=== PATIENT | female | born 1950 | race Hispanic/Latino ===

== ENCOUNTER 2019-09-17 12:42 | Outpatient (CLI) | payer MEDICARE, MEDICAID ==
--- NOTE | 2019-09-17 14:32 | MRI ---
EXAM: Left knee MRI without contrast: HISTORY: Left knee internal derangement COMPARISON: None FINDINGS: Multiplanar, multisequence MRI examination of the knees performed. No evidence for significant joint effusion. Minimal generalized tricompartment cartilage loss. Medial meniscus: Minimal intrasubstance degenerative signal involving the body of the medial meniscus without evidence for an acute tear extending to the peripheral free edge. Lateral meniscus: Unremarkable. Anterior cruciate ligament:Intact. Posterior cruciate ligament: Intact. Medial collateral ligament complex: Intact. Lateral collateral ligament complex: Intact. Quadriceps and patellar tendons: Intact. Extensor mechanism: Unremarkable. No evidence for acute osteochondral defect or abnormal marrow edema signal. IMPRESSION: Minimal intrasubstance degenerative signal in the body of the medial meniscus without evidence for ac jena tear. Mild tricompartment cartilage loss. No evidence for other significant acute internal derangement.
== END 2019-09-17 12:43 | disposition home or self-care (01) ==
LOC: BICMRI 12:42
PROVIDERS: ATTEND Orthopaedic Surgery
DX: M23.92 Unspecified internal derangement of left knee (principal); M17.12 Unilateral primary osteoarthritis, left knee; M94.8X6 Other specified disorders of cartilage, lower leg

== ENCOUNTER 2019-10-11 07:26 | Outpatient (CLI) | payer MEDICARE, MEDICAID, OTHER ==
--- NOTE | 2019-10-11 11:27 | RAD ---
CHEST 2 VIEWS: Date: 10/11/2019 HISTORY: Preoperative evaluation. COMPARISON: 08/27/2016. FINDINGS: Heart size is normal. The lungs are clear. No confluent pneumonia, overt edema, or pleural effusion. IMPRESSION: No significant acute intrathoracic disease. Stable from prior study. Atherosclerosis of aorta. POS: OFF
[2019-10-11 14:04] LABS: #Eosinphils 0.1 thou/uL (0.0-0.7); #Lymphocytes 2.4 thou/uL (1.20-3.40); #Monocytes 0.4 thou/uL (0.11-0.59); #Neutrophils 3.7 thou/uL (1.40-6.50); %Basophils 0.2 % (0.0-1.0); %Eosinophils 0.9 % (0.0-10.0); %Lymphocytes 36.2 % (21.0-51.0); %Monocytes 5.4 % (0.0-10.0); %Neutrophils 57.3 % (42.0-75.0); Hemoglobin 14.5 g/dL (12.0-16.0); Mean Corpuscular HGB CONC 33.7 g/dL (32.0-36.0); Mean Corpuscular Hemoglobin 34.3 pg (27.0-31.0); Platelet Count 163 thou/uL (130-400); RBC Distribution Width 12.2 % (11.5-14.5); Red Blood Cell (RBC) Count 4.24 mill/uL (4.20-5.40); White Blood Cell (WBC) Count 6.5 thou/uL (4.8-10.8)
[2019-10-11 14:07] LABS: Anion Gap 15 mmol/L (10-20); BUN (Urea Nitrogen) 8 mg/dL (9.8-20.1); Calc. Creatinine Clearance 0 mL/min (70-130); Calcium 8.8 mg/dL (7.8-10.44); Carbon Dioxide 23 mmol/L (23-31); Chloride 104 mmol/L (98-107); Estimated GFR-MDRD 82; Glucose 172 mg/dL (80-115); Potassium 3.8 mmol/L (3.5-5.1); Sodium 138 mmol/L (136-145)
[2019-10-12 14:15] LABS: SARS-CoV-2 MS2 Positive; SARS-CoV-2 N Gene Negative; SARS-CoV-2 S Gene Negative; SARS-CoV-2 by NAA Not Detected (NotDetected); SARS-CoV-2 orf1ab Negative
--- NOTE | 2019-10-12 15:37 | EKG ---
Test Reason : Blood Pressure : / mmHG Vent. Rate : 086 BPM Atrial Rate : 086 BPM P-R Int : 140 ms QRS Dur : 082 ms QT Int : 368 ms P-R-T Axes : 018 049 069 degrees QTc Int : 440 ms Normal sinus rhythm Low voltage QRS Borderline ECG Confirmed by MEENAKSHI SAAVEDRA ([id number]) on 10/12/2019 3:37:28 PM Referred By: AMITA Confirmed By:MEENAKSHI SAAVEDRA
== END 2019-10-11 07:27 | disposition home or self-care (01) ==
LOC: LABBT 07:26 → SCSRAD 07:27
PROVIDERS: ATTEND Orthopaedic Surgery
DX: Z01.818 Encounter for other preprocedural examination (principal); Z11.59 Encounter for screening for other viral diseases; M17.12 Unilateral primary osteoarthritis, left knee
CPT/HCPCS: 71046; 80048; 85025; 87635; 93005; 93010; U0003

== ENCOUNTER 2019-10-14 07:20 | Day surgery (SDC) | payer MEDICARE, MEDICAID ==
[2019-10-11 11:31] VITALS: BMI 42.2
[2019-10-14] MEDS ORDERED: Bupivacaine/Epinephrine 0.25% 30 ML VIAL ONE (09:46)
[2019-10-14] MEDS ORDERED: Fentanyl 100 MCG/2 ML VIAL ONE (10:01)
[2019-10-14] MEDS ORDERED: Lidocaine 1% (PF) 30 ML VIAL ONE (10:40)
[2019-10-14] MEDS ORDERED: PROPOFOL 200 MG/20 ML VIAL ONE (10:59)
[2019-10-14] MEDS ORDERED: Lidocaine 1% PF 5 ML VIAL ONE (10:59)
[2019-10-14] MEDS ORDERED: PHENYLEPHRINE-NS 100 MCG/ML 10 ML SYRINGE ONE (10:59)
[2019-10-14] MEDS ORDERED: Succinylcholine Chloride 20 MG/ML 10 ml SYRINGE FS ONE (10:59)
--- NOTE | 2019-10-15 10:40 | OP ---
DATE OF PROCEDURE: 10/14/2019 PREOPERATIVE DIAGNOSES: Left knee no acute tear. POSTOPERATIVE DIAGNOSES: 1. Left knee partial anterior cruciate ligament tear. 2. Grade 2 medial femoral condyle defects throughout medial femoral condyle. 3. Grade 1 changes of medial tibial plateau, degenerative tearing of the medial meniscus and degenerative fraying of lateral meniscus, grade 1 changes patella, no loose bodies. PROCEDURE PERFORMED: Debridement and shaving of 3 compartments. [employer]MENT[employer]IAN: None. ANESTHESIOLOGIST: Marcia Petty MD ANESTHESIA: The patient received general endotracheal intubation. She received of Marcaine with and 25 mL of lidocaine plain. ANTIBIOTICS: Ancef 2 g. TOURNIQUET TIME: 19 minutes at 300 mmHg. ESTIMATED BLOOD LOSS: Less than 20 mL. COMPLICATIONS: None. HISTORY OF PRESENT ILLNESS: Ms. Granados is a 69-year-old female, who failed conservative measures, did not desire an injection for pain relief because of previous experience. The patient had MRI evidence of some mild tricompartment changes. The patient was not prepared for a knee replacement. I discussed with her the risks and benefits of scope debridement to include, pain, scar, bleeding, infection, damage to vital structures, decreased range of motion and strength, need for further surgeries, failure of procedure, increasing arthritis, need for conversion to total knee. She understood the risks and benefits of procedure and elected to proceed. DESCRIPTION OF PROCEDURE: Time-out was performed designating the patient's left lower extremity as the operative site based on site, consents, and marking. After time-out, the patient's lower extremity was prepped and draped in sterile fashion. Tourniquet was brought up and left up for a total of 19 minutes. An anterolateral portal was placed, anteromedial portal was placed, visualized within the joint. After excising the fat pad, there was a partial tear of the ACL, which was documented. I looked in the fat pad, there was some free loose particulates, which were debrided off. There was just some grade 1 changes in the patella but no significant changes. I looked in both medial and lateral gutters for loose bodies, I found none. I looked in the lateral compartment, there was some just frayed edge along the lateral meniscus, but no obvious full-thickness defect of the cartilage. In the medial compartment, she had grade 2 changes noted. Throughout the entire medial femoral condyle, some grade 1 changes in the medial tibial plateau and degeneration of the meniscus, but no significant tearing. There might be a little partial tearing of her root, but not a full-thickness tear that was noted. I debrided the little partial tear of the root and any of the loose cartilage. I completed my debridement and shaving. I washed out the joint. I closed the medial portal, injected 25 mL of lidocaine plain in the knee joint. I had injected Marcaine preprocedure with epinephrine 25 mL, closed the portal, let the tourniquet down after 19 minutes. The patient will begin weightbearing as tolerated. She will follow up me in clinic in about 2 weeks for suture removal. Job ID: [id number]
== END 2019-10-14 12:58 | disposition home or self-care (01) ==
LOC: SDC 07:20
PROVIDERS: ATTEND Orthopaedic Surgery
PROC: 0SBD4ZZ Excision of Left Knee Joint, Percutaneous Endoscopic Approach (ICD-10-PCS; principal; 2019-10-14)
DX: S83.512A Sprain of anterior cruciate ligament of left knee, initial encounter (principal); M23.301 Other meniscus derangements, unspecified lateral meniscus, left knee; M23.304 Other meniscus derangements, unspecified medial meniscus, left knee; M25.862 Other specified joint disorders, left knee; M17.12 Unilateral primary osteoarthritis, left knee; I10 Essential (primary) hypertension; E78.5 Hyperlipidemia, unspecified; J44.9 Chronic obstructive pulmonary disease, unspecified; E11.9 Type 2 diabetes mellitus without complications; F17.210 Nicotine dependence, cigarettes, uncomplicated; Z79.4 Long term (current) use of insulin; Z79.82 Long term (current) use of aspirin; Z79.899 Other long term (current) drug therapy; W19.XXXA Unspecified fall, initial encounter; Y92.009 Unspecified place in unspecified non-institutional (private) residence as the place of occurrence of the external cause
CPT/HCPCS: J0690; J2001; J2704; J3010

== ENCOUNTER 2024-08-27 08:38 | Outpatient (CLI) | payer OTHER ==
[2024-08-27] MEDS ORDERED: Iopamidol 370 76% 100 ML VIAL ONE (11:47)
== END 2024-08-27 08:39 | disposition home or self-care (01) ==
LOC: CT 08:38
PROVIDERS: ATTEND Urology
DX: R19.00 Intra-abdominal and pelvic swelling, mass and lump, unspecified site (principal); N20.0 Calculus of kidney; K74.60 Unspecified cirrhosis of liver; N32.9 Bladder disorder, unspecified; K86.2 Cyst of pancreas
CPT/HCPCS: 74178